=== PATIENT | female | born 1945 | race Caucasian/White ===

== ENCOUNTER 2016-08-21 13:10 | Emergency (ER) | payer MEDICARE, MEDICAID ==
[~2016-08-21] VITALS: Ht 152.4 cm; Wt 106.6 kg
[2016-08-21 13:19] VITALS: BP_SYST 154
[2016-08-21 14:04] LABS: BILIRUBIN,URINE NEGATIVE (NEGATIVE); BLOOD, URINE NEGATIVE (NEGATIVE); CLARITY/URINE SL HAZY (CLEAR); COLOR,URINE YELLOW (YELLOW); GLUCOSE,URINE NEGATIVE (NEGATIVE); KETONES,URINE NEGATIVE (NEGATIVE); LEUKOCYTE ESTERASE ,URINE TRACE (NEGATIVE); NITRITE, URINE NEGATIVE (NEGATIVE); PROTEIN URINE NEGATIVE (NEGATIVE); UROBILINOGEN,URINE 0.2 (0.2-1.0)
[2016-08-21 14:19] LABS: BACTERIA,URINE RARE /HPF (None Seen); MUCUS,URINE 1+ /LPF (None Seen); RBC,URINE NONE SEEN /HPF (0-3); WBC,URINE 0-3 /HPF (0-3)
[2016-08-21] MEDS ORDERED: ONDANSETRON 4 MG ODT TAB PO ONE (14:30)
[2016-08-21] MEDS ORDERED: KETOROLAC TROMETHAMINE 30 MG VIAL IM ONE (14:30)
[2016-08-21 14:41] LABS: ANION GAP 5 (5-15); CHLORIDE 105 mmol/L (98-107); CREATININE 0.97 mg/dL (0.55-1.30); GLUCOSE 138 mg/dL (70-99); POTASSIUM 3.9 mmol/L (3.5-5.1); SODIUM SERUM 136 mmol/L (136-145); UREA NITROGEN, BLOOD 40 mg/dL (8-21)
[2016-08-21 14:45] LABS: BASOPHILS % (AUTO) 0.3 % (0.0-2.0); EOSINOPHILS # (AUTO) 0.1 K/uL (0.0-0.4); EOSINOPHILS % (AUTO) 1.1 % (0.0-4.0); HEMATOCRIT 34.4 % (36-48); HEMOGLOBIN 11.4 g/dL (12.0-16.0); LYMPHOCYTES # (AUTO) 1.1 K/uL (1.0-5.5); LYMPHOCYTES % (AUTO) 10.7 % (20.5-51.5); MEAN CORPUSCULAR HEMOGLOBIN 29 pg (27-31); MEAN CORPUSCULAR HGB CONC 33 % (32-36); MEAN CORPUSCULAR VOLUME 87 fL (79.0-98.0); MONOCYTES # (AUTO) 0.5 K/uL (0.0-1.0); MONOCYTES % (AUTO) 4.5 % (1.7-9.3); NEUTROPHILS # (AUTO) 8.4 K/uL (1.8-7.7); NEUTROPHILS % (AUTO) 83.4 % (40.0-70.0); PLATELET COUNT (AUTO) 179 K/uL (130-430); RED BLOOD CELL COUNT(AUTO) 3.98 MIL/uL (4.2-6.2); RED CELL DISTRIBUTION WIDTH 15.3 % (9.0-15.0); WHITE BLOOD COUNT (AUTO) 10.1 K/uL (4.8-10.8)
[2016-08-21] MEDS ORDERED: MORPHINE 4 MG/ML INJ. SYRINGE IVP ONE (14:45)
[2016-08-21] MEDS ORDERED: ONDANSETRON HCL 4 MG/2 ML VIAL IVP ONE (14:45)
[2016-08-21 14:46] LABS: ALANINE AMINOTRANSFERASE 29 U/L (12-78); ALBUMIN 3.4 g/dL (3.4-4.8); ASPARTATE AMINOTRANSFERASE 23 U/L (10-37); TOTAL BILIRUBIN 0.4 mg/dL (0.0-1.0); TOTAL PROTEIN, SERUM 7.5 g/dL (6.4-8.3)
[2016-08-21 15:03] LABS: PROTHROMBIN TIME 10.7 SECS (9.5-12.5)
[2016-08-21 15:19] LABS: AMYLASE 67 U/L (0-100); LIPASE 119 U/L (73-393)
[2016-08-21 15:48] VITALS: BP_SYST 143
== END 2016-08-21 15:48 | disposition home or self-care (01) ==
LOC: SED 13:10
DX: R10.30 Lower abdominal pain, unspecified (principal); R19.7 Diarrhea, unspecified; I10 Essential (primary) hypertension; E78.00 Pure hypercholesterolemia, unspecified
CPT/HCPCS: 36415; 74176; 80053; 81000; 82150; 83690; 85025; 85610; 85730; 96374; 96375; 99285; J2270; J2405

== ENCOUNTER 2018-06-02 14:44 | Emergency (ER) | payer MEDICARE, MEDICAID ==
[~2018-06-02] VITALS: Ht 142.2 cm; Wt 107.0 kg
[2018-06-02 15:01] VITALS: BP_SYST 114
[2018-06-02 16:49] LABS: BASOPHILS % (AUTO) 0.4 % (0.0-2.0); EOSINOPHILS # (AUTO) 0.1 K/uL (0.0-0.4); EOSINOPHILS % (AUTO) 2.1 % (0.0-4.0); HEMATOCRIT 34.1 % (36-48); HEMOGLOBIN 11.1 g/dL (12.0-16.0); LYMPHOCYTES # (AUTO) 1.6 K/uL (1.0-5.5); LYMPHOCYTES % (AUTO) 25.8 % (20.5-51.5); MEAN CORPUSCULAR HEMOGLOBIN 29 pg (27-31); MEAN CORPUSCULAR HGB CONC 32 % (32-36); MEAN CORPUSCULAR VOLUME 89 fL (79.0-98.0); MONOCYTES # (AUTO) 0.7 K/uL (0.0-1.0); MONOCYTES % (AUTO) 10.4 % (1.7-9.3); NEUTROPHILS # (AUTO) 3.9 K/uL (1.8-7.7); NEUTROPHILS % (AUTO) 61.3 % (40.0-70.0); PLATELET COUNT (AUTO) 193 K/uL (130-430); RED BLOOD CELL COUNT(AUTO) 3.85 MIL/uL (4.2-6.2); RED CELL DISTRIBUTION WIDTH 15.9 % (9.0-15.0); WHITE BLOOD COUNT (AUTO) 6.3 K/uL (4.8-10.8)
[2018-06-02 16:51] LABS: BILIRUBIN,URINE NEGATIVE (NEGATIVE); BLOOD, URINE 1+ (NEGATIVE); CLARITY/URINE HAZY (CLEAR); COLOR,URINE YELLOW (YELLOW); GLUCOSE,URINE NEGATIVE (NEGATIVE); KETONES,URINE NEGATIVE (NEGATIVE); LEUKOCYTE ESTERASE ,URINE 3+ (NEGATIVE); NITRITE, URINE POSITIVE (NEGATIVE); PH,URINE 5.5 (5.0-8.0); PROTEIN URINE NEGATIVE (NEGATIVE); UROBILINOGEN,URINE 0.2 (0.2-1.0)
[2018-06-02 16:56] LABS: ANION GAP 11 (5-15); CALCIUM 9.5 mg/dL (8.4-11.0); CHLORIDE 104 mmol/L (98-107); CREATININE 0.87 mg/dL (0.55-1.30); GLUCOSE 136 mg/dL (70-99); POTASSIUM 4.1 mmol/L (3.5-5.1); SODIUM SERUM 140 mmol/L (136-145); UREA NITROGEN, BLOOD 29 mg/dL (8-21)
[2018-06-02 17:01] LABS: BACTERIA,URINE MANY /HPF (None Seen); MUCUS,URINE None Seen /LPF (None Seen); RBC,URINE 0-3 /HPF (0-3); WBC,URINE >100 /HPF (0-3)
[2018-06-02 17:02] LABS: ALANINE AMINOTRANSFERASE 14 U/L (12-78); ALBUMIN 3.1 g/dL (3.4-4.8); ASPARTATE AMINOTRANSFERASE 16 U/L (10-37); LIPASE 83 U/L (73-393); TOTAL BILIRUBIN 0.3 mg/dL (0.0-1.0)
[2018-06-02] MEDS: KETOROLAC TROMETHAMINE 60 MG/2 ML VIAL IM ONE ×2 (18:00→18:02)
[2018-06-02 19:22] VITALS: BP_SYST 120
== END 2018-06-02 19:22 | disposition home or self-care (01) ==
LOC: SED 14:44
DX: N39.0 Urinary tract infection, site not specified (principal); R10.30 Lower abdominal pain, unspecified; E78.00 Pure hypercholesterolemia, unspecified; I10 Essential (primary) hypertension
CPT/HCPCS: 36415; 74176; 80053; 81000; 85025; 83690; 87086; 87186; 99284; J1885

== ENCOUNTER 2018-09-08 13:04 | Inpatient (IN) | payer MEDICARE, MEDICAID ==
[~2018-09-08] VITALS: Ht 157.5 cm; Wt 104.8 kg
[2018-09-08 13:11] VITALS: BP_SYST 155
--- NOTE | 2018-09-08 13:11 | NUR ---
Patient triaged and placed in ER bed 3. VSS and patient appears in no acute distress at this time. Accompanied by Daughter, notified of need for ER evaluation.
--- NOTE | 2018-09-08 13:13 | NUR ---
Patient comes to ER accompanied by daughter in personal vehicle, patient is AOx4, verbal but non chinese speaking, daughter at bedside, and ambulatory but weak at this time. Patient has complaint of dizziness x2 days. Denies N/V. Denies pain. Denies any fall or injury. No other complaint or injury at this time.
[2018-09-08] MEDS ORDERED: NACL 0.9% 1,000 ML IV ONE ×2 (13:17→15:00)
--- NOTE | 2018-09-08 13:20 | NUR ---
DR WILLIAMSON at bedside for ER evaluation.
[2018-09-08] MEDS ORDERED: ONDANSETRON HCL 4 MG/2 ML VIAL IVP ONE (13:30)
--- NOTE | 2018-09-08 14:00 | NUR ---
# 20 gauge angiocath placed to LT HAND. Use of asceptic technique. Opsite placed over site. Blood return noted. Blood for lab drawn from site. Flushed with 10 cc of normal saline. No evidence of infiltration noted. Patient tolerated well.
[2018-09-08 14:29] LABS: BASOPHILS # (AUTO) 0.1 K/uL (0.0-0.2); EOSINOPHILS # (AUTO) 0.1 K/uL (0.0-0.4); EOSINOPHILS % (AUTO) 2.9 % (0.0-4.0); HEMATOCRIT 35.1 % (36-48); HEMOGLOBIN 11.7 g/dL (12.0-16.0); LYMPHOCYTES # (AUTO) 1.8 K/uL (1.0-5.5); LYMPHOCYTES % (AUTO) 36.3 % (20.5-51.5); MEAN CORPUSCULAR HEMOGLOBIN 29 pg (27-31); MEAN CORPUSCULAR HGB CONC 33 % (32-36); MEAN CORPUSCULAR VOLUME 88 fL (79.0-98.0); MONOCYTES # (AUTO) 0.5 K/uL (0.0-1.0); MONOCYTES % (AUTO) 10.4 % (1.7-9.3); NEUTROPHILS # (AUTO) 2.4 K/uL (1.8-7.7); NEUTROPHILS % (AUTO) 49.4 % (40.0-70.0); PLATELET COUNT (AUTO) 175 K/uL (130-430); RED BLOOD CELL COUNT(AUTO) 3.97 MIL/uL (4.2-6.2); RED CELL DISTRIBUTION WIDTH 16.7 % (9.0-15.0); WHITE BLOOD COUNT (AUTO) 4.9 K/uL (4.8-10.8)
[2018-09-08 14:44] LABS: ANION GAP 9 (5-15); CALCIUM 9.6 mg/dL (8.4-11.0); CHLORIDE 103 mmol/L (98-107); CREATININE 0.85 mg/dL (0.55-1.30); GLUCOSE 110 mg/dL (70-99); POTASSIUM 4.9 mmol/L (3.5-5.1); SODIUM SERUM 136 mmol/L (136-145); UREA NITROGEN, BLOOD 31 mg/dL (8-21)
[2018-09-08 14:48] LABS: ALANINE AMINOTRANSFERASE 23 U/L (12-78); ALBUMIN 3.2 g/dL (3.4-4.8); AMYLASE 55 U/L (0-100); ASPARTATE AMINOTRANSFERASE 23 U/L (10-37); LIPASE 86 U/L (73-393); TOTAL BILIRUBIN 0.5 mg/dL (0.0-1.0)
[2018-09-08] MEDS ORDERED: MECLIZINE HCL 25 MG TABLET (ANITVERT) PO ONE (15:00)
--- NOTE | 2018-09-08 15:05 | NUR ---
Medicated per MD orders. IVF infusing with no s/s of infiltration at this time. Will cont to monitor
--- NOTE | 2018-09-08 16:28 | NUR ---
Patient resting in bed with daughter at bedside, no signs of distress noted, will continue to monitor.
[2018-09-08] MEDS ORDERED: MORPHINE 4 MG/ML INJ. SYRINGE IVP PRN ×2 (16:45)
[2018-09-08] MEDS ORDERED: ACETAMINOPHEN 325 MG TABLET PO PRN (16:45)
[2018-09-08] MEDS ORDERED: LORazepam 2 MG/ML VIAL IVP PRN (16:45)
[2018-09-08] MEDS ORDERED: MUPIROCIN 2% TOPICAL OINTMENT 22 GM NS PRN (16:45)
[2018-09-08] MEDS ORDERED: ONDANSETRON HCL 4 MG/2 ML VIAL IVP PRN (16:45)
[2018-09-08] MEDS ORDERED: POTASSIUM CHLORIDE 20 MEQ TAB.PRT.SR PO PRN (16:45)
[2018-09-08] MEDS ORDERED: DOCUSATE SODIUM 100 MG CAPSULE PO PRN (16:45)
[2018-09-08] MEDS ORDERED: MAGNESIUM SULFATE 50 ML IV PRN (16:45)
[2018-09-08] MEDS ORDERED: ZOLPIDEM TARTRATE 5 MG TABLET PO PRN (16:45)
[2018-09-08 16:54] LABS: BILIRUBIN,URINE NEGATIVE (NEGATIVE); BLOOD, URINE NEGATIVE (NEGATIVE); CLARITY/URINE CLEAR (CLEAR); COLOR,URINE YELLOW (YELLOW); GLUCOSE,URINE NEGATIVE (NEGATIVE); KETONES,URINE NEGATIVE (NEGATIVE); LEUKOCYTE ESTERASE ,URINE 1+ (NEGATIVE); NITRITE, URINE POSITIVE (NEGATIVE); PROTEIN URINE NEGATIVE (NEGATIVE); UROBILINOGEN,URINE 0.2 (0.2-1.0)
[2018-09-08 16:59] LABS: BACTERIA,URINE MANY /HPF (None Seen); WBC,URINE 20-50 /HPF (0-3)
[2018-09-08] MEDS ORDERED: FUROSEMIDE 20 MG/2 ML VIAL IVP ONE (17:15)
--- NOTE | 2018-09-08 17:30 | NUR ---
ADMISSION NOTE Received patient from ER via [place], admitted with diagnosis ofINTRACTABLE DIZZINESS . Patient oriented to hospital routine, call light, toileting and safety-patient verbalized understanding.
--- NOTE | 2018-09-08 17:35 | NUR ---
Patient admitted to care of DR Bartlett. Admitted to [facility] unit. Patient placed in [facility] bed 132c, connected to monitor, tolerated well with minimal discomfort. Belongings list completed. Summary report printed. Bedside SBAR report given and plan of care endorsed to [facility]ST RN.
--- NOTE | 2018-09-08 17:52 | NUR ---
CONSULTATION PAGED REASON FOR CONSULTATION:TYPE 2 IA WAS CONSULT CALLED?Y PERSON WHO WAS NOTIFIED:MADDIE CONSULTING PHYSICIAN:SILVER YOST DANCE TEACHER SPECIALTY:CARDIO DANCE TEACHER PHONE NUMBER:[phone] [facility]IC[facility]
[2018-09-08 17:54] VITALS: BP_SYST 153
--- NOTE | 2018-09-08 18:30 | NUR ---
Neuro/mobility Out of bed with mild dizziness to bedside commode with assist, perineal care given , tolerates well able to go back to bed, safety/fall precaution initiated , bed alarm, needs anticipated.
[2018-09-08] MEDS ORDERED: ASPI-1153 PO (18:42)
[2018-09-08] MEDS ORDERED: FERROUS SULFATE PO (18:42)
[2018-09-08] MEDS ORDERED: METO50TA7 PO (18:42)
[2018-09-08] MEDS ORDERED: ALLO300T2 PO (18:42)
[2018-09-08] MEDS ORDERED: GABA-531 PO (18:42)
[2018-09-08] MEDS ORDERED: TRAMADOL HCL PO (18:42)
[2018-09-08] MEDS ORDERED: TRIA1CAP6 PO (18:42)
[2018-09-08] MEDS ORDERED: LIP10 PO (18:42)
[2018-09-08] MEDS ORDERED: VIT D2 PO (18:42)
[2018-09-08] MEDS ORDERED: GLU850 PO (18:59)
--- NOTE | 2018-09-08 19:15 | NUR ---
initial notes: pt is awake ,alert,oriented x 4. pt is indonesian speaking and translated by daughter. no pain. complain. of dizziness if she moves her head side to side. vital sign are with in normal limit. no skin breakdown. iv lock to left hand gauge 24- patent.explain plan of care and safety. pt verbalized understanding. oriented to call light and encourage to use it. needs attended. alexandre light in reach.low bed position. will monitor.
[2018-09-08 19:39] VITALS: BP_SYST 178
[2018-09-08] MEDS: HEPARIN SODIUM,PORCINE 5000 UNITS/ML VIAL SUBCUT SCH (21:05)
[2018-09-08 21:14] VITALS: BP_SYST 140
--- NOTE | 2018-09-08 21:27 | NUR ---
spoke to dr. feldman- report to md result of ua and ask for accucheck due pt has DM. dr. jauregui order blood sugar check achs and covered with regular insulin and rocephine daily ivpb and antivert for dizziness.
[2018-09-08] MEDS ORDERED: INSULIN REGULAR, HUMAN 100 UNITS/ML, 10 ML VIAL (novoLIN R) SUBCUT PRN (21:30)
[2018-09-08] MEDS ORDERED: MECLIZINE HCL 25 MG TABLET (ANITVERT) PO PRN (21:30)
[2018-09-08] MEDS ORDERED: cefTRIAXone 1 GM in D5W 50 ML IV SCH (22:00)
--- NOTE | 2018-09-08 22:00 | NUR ---
notes: pt is awake, alert. stable. no pain. not dizzy at this time.daughter at bedside. call light in reach. low bed position.will monitor.
[2018-09-08] MEDS ORDERED: cefTRIAXone 1 GM IVPB PREMIX 50 ML IV ONE (22:47)
--- NOTE | 2018-09-09 | NUR ---
resting, no pain. not distress. stable. daughter at bedside, safety on. will monitor.
--- NOTE | 2018-09-09 01:46 | NUR ---
sleeping, comfortable. no sob. no pain. no sign of dizziness. stable. daughter still at bedside. will monitor.
[2018-09-09 01:58] VITALS: BP_SYST 141
--- NOTE | 2018-09-09 04:14 | NUR ---
pt wakes up and void on bedpan assisted by solar photovoltaic systems engineer. no dizziness. stable. daughter at bedside. will monitor.
--- NOTE | 2018-09-09 06:05 | NUR ---
resting, comfortable. no dizziness. stable. will monitor.
[2018-09-09 06:47] LABS: BASOPHILS % (AUTO) 0.5 % (0.0-2.0); EOSINOPHILS # (AUTO) 0.2 K/uL (0.0-0.4); EOSINOPHILS % (AUTO) 2.7 % (0.0-4.0); HEMATOCRIT 35.1 % (36-48); HEMOGLOBIN 11.7 g/dL (12.0-16.0); LYMPHOCYTES % (AUTO) 34.3 % (20.5-51.5); MEAN CORPUSCULAR HEMOGLOBIN 29 pg (27-31); MEAN CORPUSCULAR HGB CONC 33 % (32-36); MEAN CORPUSCULAR VOLUME 88 fL (79.0-98.0); MONOCYTES # (AUTO) 0.7 K/uL (0.0-1.0); MONOCYTES % (AUTO) 11.8 % (1.7-9.3); NEUTROPHILS % (AUTO) 50.7 % (40.0-70.0); PLATELET COUNT (AUTO) 192 K/uL (130-430); RED BLOOD CELL COUNT(AUTO) 4.01 MIL/uL (4.2-6.2); RED CELL DISTRIBUTION WIDTH 16.4 % (9.0-15.0); WHITE BLOOD COUNT (AUTO) 5.9 K/uL (4.8-10.8)
--- NOTE | 2018-09-09 06:57 | NUR ---
Nutrition Update Phil Scale 18 noted. Pt admitted for Intractable Dizziness Diet: Cardiac Low CHOL Low Fat 2gm Na BMI: 42.3 kg/m2 RD to follow per nutrition care standards.
[2018-09-09 07:02] LABS: ANION GAP 7 (5-15); CALCIUM 9.6 mg/dL (8.4-11.0); CHLORIDE 108 mmol/L (98-107); CREATININE 0.78 mg/dL (0.55-1.30); GLUCOSE 112 mg/dL (70-99); SODIUM SERUM 140 mmol/L (136-145); UREA NITROGEN, BLOOD 28 mg/dL (8-21)
--- NOTE | 2018-09-09 07:25 | NUR ---
closing: pt is awake, alert. stable. needs attended the whole shift. bedside report given to am rn.
--- NOTE | 2018-09-09 08:02 | NUR ---
Opening Note Report received from Naun ZAMORA shift nurse. Patient is currently resting in bed. Daughter is at the bedside. Still c/o dizziness upon turning. No other c/o at the moment. IV is on the right hand 24g, sl. Patient is currently SR on the monitor. Call light is within reach and bed is in low position. Will continue to monitor.
[2018-09-09 08:09] VITALS: BP_SYST 142
[2018-09-09] MEDS: HEPARIN SODIUM,PORCINE 5000 UNITS/ML VIAL SUBCUT SCH (08:50)
[2018-09-09] MEDS ORDERED: FUROSEMIDE 20 MG/2 ML VIAL IVP SCH (09:00)
[2018-09-09] MEDS ORDERED: GABAPENTIN 300 MG CAPSULE PO ONE (10:00)
[2018-09-09] MEDS ORDERED: ATORVASTATIN 10 MG TABLET PO ONE (10:00)
[2018-09-09] MEDS ORDERED: METOPROLOL SUCCINATE 50 MG TAB.SR.24H (TOPROL XL) PO ONE (10:00)
[2018-09-09] MEDS ORDERED: ASPIRIN 81 MG TABLET(ECOTRIN) PO ONE (10:00)
[2018-09-09] MEDS ORDERED: ALLOPURINOL 300 MG TABLET (ZYLOPRIM) PO ONE (10:00)
--- NOTE | 2018-09-09 10:20 | NUR ---
Rounds Patient is currently resting in bed. Daughter is at the bedside.
[2018-09-09 10:28] LABS: TRIGLYCERIDES 146 mg/dL (30-150)
[2018-09-09 10:29] LABS: CHOLESTEROL 205 mg/dL (<200); HDL CHOLESTEROL 50 mg/dL (>55); LDL CHOLESTEROL 127 mg/dL (<100)
--- NOTE | 2018-09-09 10:52 | NUR ---
CONSULTATION PAGED REASON FOR CONSULTATION:INT DIZZINESS WAS CONSULT CALLED?Y PERSON WHO WAS NOTIFIED:SATISH CONSULTING PHYSICIAN:ROBBIN HERNANDEZ DISTRIBUTION SPECIALIST SPECIALTY:NEURO DISTRIBUTION SPECIALIST PHONE NUMBER:[phone] REQUESTING PHYSICIAN:GUR[place]ER [place]KE
--- NOTE | 2018-09-09 11:10 | NUR ---
RN Note Patient is off the unit going to CT scan.
[2018-09-09 12:43] VITALS: BP_SYST 139
--- NOTE | 2018-09-09 12:47 | NUR ---
Rounds Patient is having lunch in bed. Call light is within reach.
--- NOTE | 2018-09-09 14:28 | NUR ---
Rounds Patient is currently sleeping in bed. Call light is within reach and bed is in low position.
[2018-09-09 16:42] VITALS: BP_SYST 136
--- NOTE | 2018-09-09 16:50 | NUR ---
Rounds Patient is currently sleeping in bed. No signs of distress noted. Call light is within reach.
--- NOTE | 2018-09-09 18:30 | NUR ---
BLOOD SUGAR 174MG/DL. NO COVERAGE GIVEN.PER DAUGHTER WILL GIVE HER METFORMIN AT HOME . NEURONTIN PO GIVEN. Addendum: 09/09/18 at 2053 by Soo Martinez RN TIME OF THIS NOTES IS 1930HR. NOT 1830HR.
--- NOTE | 2018-09-09 18:45 | NUR ---
Closing Note Dr. Grande examined patient at the bedside. Family is currently at the bedside. IV is on the right hand 24g, sl. No signs of distress noted throughout the shift. Call light is within reach and bed is in low position. Will endorse care to the oncoming nurse.
[2018-09-09 18:59] VITALS: BP_SYST 138
--- NOTE | 2018-09-09 19:10 | NUR ---
received report at bedside from rafaela PALACIOS. DAUGHTER AT BEDSIDE. FOR DISCHARGE SANTIAGO.
[2018-09-09] MEDS ORDERED: MECL-123 PO (19:16)
[2018-09-09 19:20] VITALS: BP_SYST 111
--- NOTE | 2018-09-09 19:20 | NUR ---
VITAL SIGNS TAKEN.ALL WITHIN NORMAL LIMITS. DAUGHTER REQUESTED TO GIVE SPONGE BATH GIVE DUE NITE PO MEDS AND CHECK BLOOD SUGAR BEFORE GOING HOME. CALLED [facility] WILL DO.
--- NOTE | 2018-09-09 19:25 | NUR ---
SALINE LOCK REMOVED. TIP OF NEEDLE INTACT. PRESSURE DRESSING APPLIED. TELEMETRY BOX REMOVED. PATIENT DENIES PAIN DIZZINESS NOR SOB. SPONGE BATH INITIATED BY ADRIAN HICKS.
--- NOTE | 2018-09-09 19:35 | NUR ---
DISCHARGE INSTRUCTIONS AND EXIT CARE GIVEN TO PATIENT AND DAUGHTER. MECLIZINE TO BE GIVEN NEEDED,NOT TO GIVE WATER MEDICINE . TO CALL DR. POTTS OFFICE IN A WEEK FOR FOLLOW UP,TO CALL PRIMARY MD FOR FOLLOW UP. DISCUSSED HOME MEDS WITH DAUGHTER WITH UNDERSTANDING.
--- NOTE | 2018-09-09 19:40 | NUR ---
PHONE #OF DR. POTTS OFFICE GIVEN.
--- NOTE | 2018-09-09 19:55 | NUR ---
DISCHARGE NOTES: ALL SIGNED DISCHARGE PACKETS WITH EXIT CARE GIVEN. WHEELED PATIENT TO PARKING LOT ACCOMPANIED BY DAUGHTER AND RN IN GOOD CONDITION.
[2018-09-09] MEDS ORDERED: GABAPENTIN 300 MG CAPSULE PO SCH (21:00)
[2018-09-10] MEDS ORDERED: METOPROLOL SUCCINATE 50 MG TAB.SR.24H (TOPROL XL) PO SCH (09:00)
[2018-09-10] MEDS ORDERED: ATORVASTATIN 10 MG TABLET PO SCH (09:00)
[2018-09-10] MEDS ORDERED: ASPIRIN 81 MG TABLET(ECOTRIN) PO SCH (09:00)
[2018-09-10] MEDS ORDERED: ALLOPURINOL 300 MG TABLET (ZYLOPRIM) PO SCH (09:00)
--- NOTE | 2018-09-10 10:52 | NUR ---
PCP APPOINTMENT/ CHF PROTOCOL SPOKE TO [place] OFFICE OF DR JAY IN [facility] ( TEL#[phone]) MADE AN APPOINTMENT TO SEE PATIENT ON 09/13/18 AT 10:30AM, DAUGHTER OF PATIENT VEGA MADE AWARE OF APPOINTMENT.
--- NOTE | 2018-09-12 16:40 | NUR ---
Discharge Follow Up Phone Call DATA SUPPORT SPECIALIST phoned patient, . Patient stated she was okay and hung up. DATA SUPPORT SPECIALIST noted that a PCP appointment was made for patient on 09/13/18 10:30am. No other calls will be made.
== END 2018-09-09 19:36 | disposition home or self-care (01) | DRG 48 ==
LOC: SED 13:04 → STU 16:44 → INTOOBSV 16:44 → OBSVTOIN 16:44 → STU 17:30 → OBSVTOIN 09-09 13:17
PROVIDERS: ADMIT General Practice; ATTEND General Practice
DX: G90.8 Other disorders of autonomic nervous system (principal); E66.01 Morbid (severe) obesity due to excess calories; E11.40 Type 2 diabetes mellitus with diabetic neuropathy, unspecified; I35.0 Nonrheumatic aortic (valve) stenosis; N39.0 Urinary tract infection, site not specified; E78.5 Hyperlipidemia, unspecified; H81.10 Benign paroxysmal vertigo, unspecified ear; I10 Essential (primary) hypertension; Z83.3 Family history of diabetes mellitus; Z90.710 Acquired absence of both cervix and uterus; Z79.4 Long term (current) use of insulin; M10.9 Gout, unspecified; Z68.41 Body mass index [BMI] 40.0-44.9, adult
CPT/HCPCS: 36415; 70450-TC; 71045; 80048; 80053; 80061; 81000-TC; 82150-TC; 82550-TC; 82962; 83036; 83605; 83690-TC; 83735-TC; 83880; 84484; 85025; 85610-TC; 85730-TC; 87040-TC; 87086; 87186-TC; 93005; 93880; 96361; 96374; 99285; G0378; J0696; J1644; J1815; J1940; J2405; J7030; J7060; J8597